=== PATIENT | female | born 1990 | race Caucasian/White ===

== ENCOUNTER 2020-10-11 15:57 | Emergency (ER) | payer SELFPAY ==
[~2020-10-11] VITALS: Ht 167.6 cm; Wt 116.8 kg
[2020-10-11 16:02] VITALS: Ht 167.6 cm; Wt 116.8 kg
[2020-10-11 17:44] VITALS: BP 131/71
[2020-10-11] MEDS ORDERED: CLEOCIN HCL300 MG PO (18:18)
[2020-10-11] MEDS ORDERED: EPIPEN 2-P0.3 MG/0.3 IM (18:18)
[2020-10-11] MEDS ORDERED: VISTARIL50 MG PO (18:18)
[2020-10-11] MEDS ORDERED: PREDNISONE50 MG PO (18:18)
== END 2020-10-11 18:42 | disposition home or self-care (01) ==
LOC: D.ER 15:57
DX: R21 Rash and other nonspecific skin eruption (principal)